=== PATIENT | male | born 1960 | race Caucasian/White ===

== ENCOUNTER 2016-10-03 07:29 | Day surgery (SDC) | payer BC ==
[~2016-10-03] VITALS: Ht 190.5 cm; Wt 84.4 kg
[2016-10-03 07:56] VITALS: Ht 190.5 cm; Wt 84.4 kg
[2016-10-03] MEDS ORDERED: MULT-762 PO (08:10)
[2016-10-03 08:32] VITALS: BP 120/72; PULSE 58; RESP 16
[2016-10-03] MEDS ORDERED: PROPOFOL 40 ML ONE (08:50)
[2016-10-03] MEDS ORDERED: LIDOCAINE 2% (SDV) 5 ML INJ ONE (08:50)
[2016-10-03] MEDS ORDERED: PROPOFOL 20 ML ONE (09:09)
--- NOTE | 2016-10-03 10:05 | GILP ---
DATE OF PROCEDURE: 10/03/2016 NAME OF PROCEDURE: Colonoscopy. SURGEON: Navin Dodd MD PREOPERATIVE DIAGNOSIS: Screening colonoscopy. POSTOPERATIVE DIAGNOSES: 1. Colonoscopy all the way to the cecum. 2. Diverticulosis of the colon. 3. Internal hemorrhoids. 4. No colon neoplasm was identified. INDICATION FOR THE PROCEDURE: Mr. Reymundo Pool is a 55-year-old male patient who was scheduled for s creening colonoscopy. The procedure and possible complications are well explained to the patient, he understood and consen rossy to the procedure. DESCRIPTION OF PROCEDURE: Under the influence of anesthesia, the colonoscope was carefully introduc ed in the rectum and under direct vision, it was advanced all the way to the cecum. FINDINGS: The patient had diverticulosis of the colon. He also had internal hemorrhoids. No colon neoplasm was identified. He tolerated the procedure very well and there was no complication from the procedure. At the end o f the procedure, he was awake with stable vital signs and he was discharged home to the care of his family. IMPRESSION: 1. Colonoscopy all the way to the cecum. 2. Diverticulosis of the colon. 3. Internal hemorrhoids. 4. No colon neoplasm was identified. PLAN: 1. High fiber diet. 2. Next screening colonoscopy in 10 years. Dictated By: NAVIN DODD MD GD/NTS Conf#: [id number] DID#: [id number] CC: NAVIN DODD MD; GARRY LOUIS MD;*[facility]*
[2016-10-03 10:10] VITALS: BP 119/68; RESP 20
--- NOTE | 2016-10-07 07:00 | CONS ---
DATE OF ADMISSION: 10/03/2016 DATE OF CONSULTATION: TYPE OF CONSULTATION: Preoperative Gastroenterology Dear Dr. Barboza: I thank you very much for this kind referral. HISTORY OF PRESENT ILLNESS: Mr. Reymundo Loo is a 55-year-old male patient who has been referred to me for colon evaluation. There is no past history of colon neoplasm. The patient never had a scre ening colonoscopy. His appetite has been good and he is not losing any weight. He does not have an y upper abdominal pain, nausea or vomiting. There is no history of peptic ulcer disease. He is not taking any nonsteroidal anti-inflammatory agents. There is no history of gallstones. He does not have any fever, chills or jaundice. There is no history of liver disease. He is not a hypertensive or diabetic. He does not have any heart disease or lung problem. There is no history of kidney di sease. SOCIAL HISTORY: He is a nonsmoker. He does not abuse alcohol. FAMILY HISTORY: Negative for gastrointestinal tract neoplasm. ALLERGIES: THERE IS NO HISTORY OF SIGNIFICANT DRUG ALLERGY. MEDICATIONS: None. PHYSICAL EXAMINATION: GENERAL: He is 6 feet 3 inches tall and he weighs 180 pounds. HEART: Examination of the heart reveals normal first and second heart sounds. LUNGS: Clear. ABDOMEN: Soft without any distention. Liver and spleen are not palpable. There are no masses. Th ere is no focal tenderness. Normal bowel sounds are heard. CENTRAL NERVOUS SYSTEM: Does not reveal any focal neurological deficit. IMPRESSION: The patient needs screening colonoscopy. PLAN: Screening colonoscopy. The procedure and possible complications are well explained to the patient. He understands and cons ents to the procedure. I thank you once again. With warmest personal regards, Dictated By: IVIS DODD MD GD/NTS Conf#: [id number] DID#: [id number] CC: IVIS DODD MD;*[facility]*
== END 2016-10-03 11:56 | disposition home or self-care (01) ==
LOC: GIL 07:29
PROVIDERS: ATTEND Internal Medicine Gastroenterology
DX: Z12.11 Encounter for screening for malignant neoplasm of colon (principal); K57.90 Diverticulosis of intestine, part unspecified, without perforation or abscess without bleeding; K64.8 Other hemorrhoids